=== PATIENT | male | born 1955 | race Caucasian/White ===

== ENCOUNTER → 2016-08-16 | Outpatient (CLI) | payer BC ==
[~2016-08-16] MED LIST: IBUP-1222 PO; METO25TA91 PO; RIVA20TA PO; TAMS0.4C2 PO
== END | disposition home or self-care (01) ==
LOC: CFH 12:16
PROVIDERS: ATTEND Internal Medicine Cardiovascular Disease
DX: I21.3 ST elevation (STEMI) myocardial infarction of unspecified site (principal); I48.91 Unspecified atrial fibrillation
CPT/HCPCS: 78452; 93017; A9502

== ENCOUNTER → 2018-05-19 | Outpatient (CLI) | payer OTHER ==
[~2018-05-19] MED LIST changes: +REGADENOSON 0.4 MG/5 ML SYRINGE ONE
== END | disposition home or self-care (01) ==
LOC: CFH 08:46
PROVIDERS: ATTEND Internal Medicine Cardiovascular Disease
DX: I21.3 ST elevation (STEMI) myocardial infarction of unspecified site (principal); I48.0 Paroxysmal atrial fibrillation
CPT/HCPCS: 78452; 93017; A9502; J2785

== ENCOUNTER 2019-06-04 11:16 | Outpatient (CLI) | payer OTHER ==
[~2019-06-04 11:16] MED LIST changes: -REGADENOSON 0.4 MG/5 ML SYRINGE ONE
[2019-06-04] MEDS ORDERED: OMNIPAQUE 350 MG/ML, 100ML BOTTLE ONE (13:00)
== END 2019-06-04 23:59 | disposition home or self-care (01) ==
LOC: CFH 11:16
PROVIDERS: ATTEND Internal Medicine Cardiovascular Disease
DX: I65.21 Occlusion and stenosis of right carotid artery (principal); G93.89 Other specified disorders of brain
CPT/HCPCS: 70496; 70498; 82565; Q9967